=== PATIENT | male | born 1985 | race Caucasian/White ===

== ENCOUNTER 2018-12-28 02:31 | Emergency (ER) | payer OTHER ==
[2018-12-28 02:37] VITALS: RESP 16; TEMP 97.9
--- NOTE | 2018-12-28 03:44 | ED ---
Recheck HPI - General Source: patient, RN notes reviewed Mode of arrival: ambulatory Limitations: no limitations <Tanner Garcia - Last Filed: 12/28/18 03:42> <Erum Little - Last Filed: 12/28/18 05:31> - General Chief Complaint: Recheck/Abnormal Lab/Rx Stated Complaint: Recheck Lab Levels Time Seen by Provider: 12/28/18 02:38 - History of Present Illness Initial Comments: 33-year-old male present emergency department with chief complaint of hyperkalemia. Patient states that he had lab work done today for his doctor so he can receive Vivitrol shot. Patient states he was woken up and told that his potassium was 6.3. Patient states is not taking any supplements medications. Patient is IV drug user but has not used in 2 weeks. Patient denies any chest pain, palpitations, headache, dizziness, nausea, vomiting diarrhea constipation. (Tanner Garcia) - Related Data Allergies Allergy/AdvReac Type Severity Reaction Status Date / Time No Known Allergies Allergy Verified 12/28/18 02:37 Review of Systems ROS Other: All systems not noted in ROS Statement are negative. <Tanner Garcia - Last Filed: 12/28/18 03:42> ROS Other: All systems not noted in ROS Statement are negative. <Erum Little - Last Filed: 12/28/18 05:31> ROS Statement: Those systems with pertinent positive or pertinent negative responses have been documented in the HPI. Past Medical History Past Medical History: No Reported History History of Any Multi-Drug Resistant Organisms: None Reported Past Surgical History: No Surgical Hx Reported Past Psychological History: No Psychological Hx Reported Smoking Status: Current every day smoker Past Alcohol Use History: None Reported Past Drug Use History: None Reported <Tanner Garcia - Last Filed: 12/28/18 03:42> General Exam Limitations: no limitations General appearance: alert, in no apparent distress Head exam: Present: atraumatic, normocephalic, normal inspection Respiratory exam: Present: normal lung sounds bilaterally. Absent: respiratory distress, wheezes, rales, rhonchi, stridor Cardiovascular Exam: Present: regular rate, normal rhythm, normal heart sounds. Absent: systolic murmur, diastolic murmur, rubs, gallop, clicks GI/Abdominal exam: Present: soft, normal bowel sounds. Absent: distended, tenderness, guarding, rebound, rigid Neurological exam: Present: alert, oriented X3, CN II-XII intact Skin exam: Present: warm, dry, intact, normal color. Absent: rash <Tanner Garcia - Last Filed: 12/28/18 03:42> Course Vital Signs 12/28/18 02:34 Temperature 97.9 F Pulse Rate 78 Respiratory 16 Rate Blood Pressure 132/87 O2 Sat by Pulse 100 Oximetry Medical Decision Making - Lab Data Result diagrams: 12/28/18 03:50 12/28/18 03:50 <Erum Little P - Last Filed: 12/28/18 05:31> - Lab Data Lab Results 12/28/18 12/28/18 Range/Units 03:50 03:50 WBC 6.2 (3.8-10.6) k/uL RBC 5.13 (4.30-5.90) m/uL Hgb 14.6 (13.0-17.5) gm/dL Hct 45.4 (39.0-53.0) % MCV 88.5 (80.0-100.0) fL MCH 28.4 (25.0-35.0) pg MCHC 32.1 (31.0-37.0) g/dL RDW 13.0 (11.5-15.5) % Plt Count 258 (150-450) k/uL Neutrophils % 61 % Lymphocytes % 25 % Monocytes % 6 % Eosinophils % 4 % Basophils % 1 % Neutrophils # 3.8 (1.3-7.7) k/uL Lymphocytes # 1.6 (1.0-4.8) k/uL Monocytes # 0.4 (0-1.0) k/uL Eosinophils # 0.2 (0-0.7) k/uL Basophils # 0.1 (0-0.2) k/uL Manual Slide Review Performed Sodium 142 (137-145) mmol/L Potassium 4.1 (3.5-5.1) mmol/L Chloride 107 (98-107) mmol/L Carbon Dioxide 25 (22-30) mmol/L Anion Gap 10 mmol/L BUN 20 (9-20) mg/dL Creatinine 0.62 L (0.66-1.25) mg/dL Est GFR (CKD-EPI)AfAm >90 (>60 ml/min/1.73 sqM) Est GFR (CKD-EPI)NonAf >90 (>60 ml/min/1.73 sqM) Glucose 91 (74-99) mg/dL Calcium 10.2 (8.4-10.2) mg/dL Disposition <Tanner Garcia M - Last Filed: 12/28/18 03:42> Is patient prescribed a controlled substance at d/c from ED?: No <Erum Little - Last Filed: 12/28/18 05:31> Clinical Impression: Abnormal laboratory test result Disposition: HOME SELF-CARE Condition: Good Additional Instructions: Repeat labs today resulted with a potassium of 4.1, I suspect that they'll patient lab elevation was due to breakdown of the blood products in the tube and not a true reading. At this time your potassium is not elevated. Referrals: None,Stated [Primary Care Provider] - 1-2 days
[2018-12-28 04:10] LABS: Anion Gap 10 mmol/L; Blood Urea Nitrogen 20 mg/dL (9-20); Calcium 10.2 mg/dL (8.4-10.2); Carbon Dioxide 25 mmol/L (22-30); Chloride 107 mmol/L (98-107); Glucose 91 mg/dL (74-99); Potassium 4.1 mmol/L (3.5-5.1); Sodium 142 mmol/L (137-145)
[2018-12-28 04:17] LABS: Basophils # (A) 0.1 k/uL (0-0.2); Basophils % (A) 1 %; Eosinophils # (A) 0.2 k/uL (0-0.7); Eosinophils % (A) 4 %; HCT 45.4 % (39.0-53.0); HGB 14.6 gm/dL (13.0-17.5); Lymphocytes # (A) 1.6 k/uL (1.0-4.8); Lymphocytes % (A) 25 %; MCH 28.4 pg (25.0-35.0); MCHC 32.1 g/dL (31.0-37.0); MCV 88.5 fL (80.0-100.0); Mean Platelet Volume 6.8; Monocytes # (A) 0.4 k/uL (0-1.0); Monocytes % (A) 6 %; Neutrophils # (A) 3.8 k/uL (1.3-7.7); Neutrophils % (A) 61 %; Platelet Count 258 k/uL (150-450); RBC 5.13 m/uL (4.30-5.90); WBC 6.2 k/uL (3.8-10.6)
[2018-12-28 05:59] VITALS: BP 121/90; PULSE 82
== END 2018-12-28 05:40 | disposition home or self-care (01) ==
LOC: EC 02:31
DX: R79.89 Other specified abnormal findings of blood chemistry (principal); F17.200 Nicotine dependence, unspecified, uncomplicated
CPT/HCPCS: 36415; 80048; 85025; 99284